=== PATIENT | male | born 1975 | race American Indian/Alaskan Native ===

== ENCOUNTER 2019-08-21 18:24 | Emergency (ER) | payer MEDICAID ==
--- NOTE | 2019-08-21 19:53 | EDM.PDOC ---
<ChristaMichaela M - Last Filed: 08/21/19 21:59> ED HPI GENERAL MEDICAL PROBLEM - General Chief Complaint: General Stated Complaint: FEVER,CHILLS,BODY ACHES Time Seen by Provider: 08/21/19 19:06 Source of Information: Reports: Patient, Provider, RN, RN Notes Reviewed History Limitations: Reports: No Limitations - History of Present Illness INITIAL COMMENTS - FREE TEXT/NARRATIVE: 43 year old male arrived ER from [facility] with c/o fatigue, weakness, chills, night sweats, elevated temp, poor intake of food, but good intake of liquid. No n/v. Bowels regular. No s/s of dysuria, discharge, frequency, burning, or starting a stream. Tick bit to right dorsal foot 24 hours ago. Tic bite area scant with healing scab. No redness, erythema, pruitis, rash, or discoloration at old tic bite site. C/O BL flank pain that radiated to abdomen on a few occasions yesterday. History of remote IV drug use. Last IV drug use 07-15-19. Pt states used clean needles every time. Prior to treatment, pt was homeless at [facility] near [facility]. No immediate distress noted. Pt is speaking in full sentences. Onset: Gradual Onset Date: 08/20/19 Duration: Day(s): Location: Reports: Generalized Lower Back Pain Score (Numeric/FACES): 3 - Related Data Allergies Allergy/AdvReac Type Severity Reaction Status Date / Time No Known Allergies Allergy Verified 08/21/19 18:44 Home Meds: Home Meds Erenumab-Aooe [Aimovig Autoinjector] 70 mg SQ Q30D 08/21/19 [History] Omeprazole 20 mg PO DAILY 08/21/19 [History] Past Medical History Musculoskeletal History: Reports: Fracture Neurological History: Reports: Migraines Psychiatric History: Reports: Addiction, Depression - Past Surgical History Musculoskeletal Surgical History: Reports: Other (See Below) Other Musculoskeletal Surgeries/Procedures:: collar bone right, left foot ORIF Social & Family History - Tobacco Use Smoking Status *Q: Current Every Day Smoker Years of Tobacco use: 23 Packs/Tins Daily: 0.2 - Caffeine Use Caffeine Use: Reports: Coffee - Recreational Drug Use Recreational Drug Use: Yes Drug Use in Last 12 Months: Yes Recreational Drug Type: Reports: Methamphetamine Recreational Drug Use Frequency: Weekly - Living Situation & Occupation Social History Comment: [facility] ED ROS GENERAL - Review of Systems Review Of Systems: See Below Constitutional: Reports: Fever, Chills, Malaise, Weakness, Night Sweats, Decreased Appetite HEENT: Reports: No Symptoms Respiratory: Reports: No Symptoms Cardiovascular: Reports: No Symptoms Endocrine: Reports: Fatigue GI/Abdominal: Reports: Decreased Appetite : Reports: Flank Pain (BL with radiation to abd on a few occasions yesterday) Musculoskeletal: Reports: No Symptoms Skin: Reports: Other (Tic bite from 08-20-19 dorsal ankle/foot. ) Neurological: Reports: Headache (Chronic. Shots for migranes. ) Psychiatric: Reports: No Symptoms Hematologic/Lymphatic: Reports: No Symptoms Immunologic: Reports: No Symptoms ED EXAM, GENERAL - Physical Exam Exam: See Below Exam Limited By: No Limitations General Appearance: Alert, WD/WN, No Apparent Distress Eye Exam: Bilateral Eye: Normal Inspection, PERRL Ears: Normal External Exam, Hearing Grossly Normal Ear Exam: Bilateral Ear: Auricle Normal Nose: Normal Inspection, Normal Mucosa, No Blood Throat/Mouth: Normal Inspection, Normal Lips, Normal Teeth, Normal Gums, Normal Voice, No Airway Compromise Head: Normocephalic Neck: Normal Inspection, Supple, Non-Tender, Full Range of Motion Respiratory/Chest: No Respiratory Distress, Lungs Clear, Normal Breath Sounds, No Accessory Muscle Use, Chest Non-Tender Cardiovascular: Normal Peripheral Pulses, Regular Rate, Rhythm, No Edema, No Gallop, No JVD, No Murmur, No Rub Peripheral Pulses: 2+: Radial (L), Radial (R), Posterior Tibial (L), Posterior Tibial (R), Dorsalis Pedis (L), Dorsalis Pedis (R) GI/Abdominal: Normal Bowel Sounds, Soft, Non-Tender, No Distention (Male) Exam: Deferred Rectal (Males) Exam: Deferred Back Exam: Normal Inspection, Other (BL flank pain previously noted) Extremities: Normal Inspection, Normal Range of Motion, Non-Tender, No Pedal Edema, Normal Capillary Refill Neurological: Alert, Oriented, CN II-XII Intact, Normal Cognition, Normal Gait, Normal Reflexes, No Motor/Sensory Deficits Psychiatric: Normal Affect, Normal Mood Skin Exam: Warm, Dry, Intact, Normal Color, No Rash, Other ([place] [address] dorsal foot/ankle. Healed with scant scab. ) Lymphatic: No Adenopathy Course - Re-Assessments/Exams Free Text/Narrative Re-Assessment/Exam: 08/21/19 19:44 Exam complete Labs ordered UA negative Waiting for lab results 08/21/19 20:10 CBC WNL 08/21/19 20:20 Strep negative. CMP negative. Waiting for procal and lactic then will call Dr Krishnamurthy 08/21/19 20:23 Lactic 1.0 08/21/19 20:33 All labs reviewed and discussed with pt. Dr Krishnamurthy called and pt will be monitored at [facility]. Dr Krishnamurthy aware etiology may be from "new" migraine shot pt received. Dr Krishnamurthy will notate in pt chart. Will d/c back to [facility]. 08/21/19 20:43 Now COVID test for d/c back to [facility] 08/21/19 21:59 Covid negative. [facility] called for ride. 08/21/19 22:00 Pt request Tylenol. Orders given pending pickler helper time more than hour. Departure - Departure Time of Disposition: 22:01 Disposition: Home, Self-Care 01 Condition: Good Clinical Impression: Fever Qualifiers: Fever type: unspecified Qualified Code(s): R50.9 - Fever, unspecified - Discharge Information *PRESCRIPTION DRUG MONITORING PROGRAM REVIEWED*: Not Applicable *COPY OF PRESCRIPTION DRUG MONITORING REPORT IN PATIENT JACQUELINE: Not Applicable Instructions: Fever, Adult, [id number] Referrals: PCP,None [Primary Care Provider] - Forms: ED Department Discharge Sepsis Event Note (ED) - Evaluation Sepsis Screening Result: Possible Sepsis Risk - Assessment/Plan Assessment:: Fever of unknown origin. Continue to monitor until further Lyme testing is resulted. COVID 19 testing was negative. Get plenty of rest and stay hydrated. Take Tylenol as prescribed from [facility]. <Duane Bermeo - Last Filed: 08/21/19 22:31> Course - Vital Signs Last Recorded V/S: Last Vital Signs Temp 98.2 F 08/21/19 20:21 Pulse 95 08/21/19 18:55 Resp 16 08/21/19 18:55 BP 133/80 08/21/19 18:55 Pulse Ox 95 08/21/19 18:55 I personally performed or re-performed the physical examination and medical decision making. I have verified all student documentation or findings, including history, physical exam and/or medical decision making. - Orders/Labs/Meds Orders: Active Orders 24 hr Category Date Time Status CULTURE STREP A CONFIRMATION [RM] Stat Lab 08/21/19 19:35 Results HUMAN GRANULOCYTIC PARDEEP-HGE Stat Lab 08/21/19 19:40 Received LYME, TOTAL AB TEST/REFLEX Stat Lab 08/21/19 19:40 Received STREP SCRN A RAPID W CULT CONF [RM] Stat Lab 08/21/19 19:35 Results Labs: Laboratory Tests 08/21/19 08/21/19 08/21/19 Range/Units 19:09 19:23 19:40 WBC 8.8 (4.5-11.0) K/uL RBC 4.90 (4.30-5.90) M/uL Hgb 13.5 (12.0-15.0) g/dL Hct 41.6 (40.0-54.0) % MCV 85 (80-98) fL MCH 28 (27-31) pg MCHC 33 (32-36) % Plt Count 278 (150-400) K/uL Neut % (Auto) 76 H (36-66) % Lymph % (Auto) 15 L (24-44) % [place] % (Auto) 8 H (2-6) % Eos % (Auto) 0 L (2-4) % Baso % (Auto) 0 (0-1) % Sodium 138 L (140-148) mmol/L Potassium 3.8 (3.6-5.2) mmol/L Chloride 102 (100-108) mmol/L Carbon Dioxide 25 (21-32) mmol/L Anion Gap 14.8 H (5.0-14.0) mmol/L BUN 11 (7-18) mg/dL Creatinine 1.1 (0.8-1.3) mg/dL Est Cr Clr Drug Dosing 95.04 mL/min Estimated GFR (MDRD) > 60 (>60) Glucose 107 H (74-106) mg/dL Lactic Acid (0.4-2.0) mmol/L Calcium 8.6 (8.5-10.1) mg/dL Total Bilirubin 0.5 (0.2-1.0) mg/dL AST 36 (15-37) U/L ALT 43 (12-78) U/L Alkaline Phosphatase 89 (46-116) U/L Total Protein 8.2 (6.4-8.2) g/dL Albumin 3.8 (3.4-5.0) g/dL Globulin 4.4 H (2.3-3.5) g/dL Albumin/Globulin Ratio 0.9 L (1.2-2.2) Procalcitonin ng/mL Urine Color Yellow (YELLOW) Urine Appearance Clear (CLEAR) Urine pH 7.5 (5.0-8.0) Ur Specific [place] 1.020 (1.008-1.030) Urine Protein Negative (NEGATIVE) mg/dL Urine Glucose (UA) Negative (NEGATIVE) mg/dL Urine Ketones Negative (NEGATIVE) mg/dL Urine Occult Blood Trace-lysed H (NEGATIVE) Urine Nitrite Negative (NEGATIVE) Urine Bilirubin Negative (NEGATIVE) Urine Urobilinogen 0.2 (0.2-1.0) EU/dL Ur Leukocyte Esterase Negative (NEGATIVE) Urine RBC 0-5 (0-5) Urine WBC Not seen (0-5) Ur Epithelial Cells Rare Amorphous Sediment Not seen Urine Bacteria Not seen Urine Mucus Not seen SARS Virus RNA (PCR) (NEGATIVE) 08/21/19 08/21/19 08/21/19 Range/Units 19:40 19:44 20:41 WBC (4.5-11.0) K/uL RBC (4.30-5.90) M/uL Hgb (12.0-15.0) g/dL Hct (40.0-54.0) % MCV (80-98) fL MCH (27-31) pg MCHC (32-36) % Plt Count (150-400) K/uL Neut % (Auto) (36-66) % Lymph % (Auto) (24-44) % [place] % (Auto) (2-6) % Eos % (Auto) (2-4) % Baso % (Auto) (0-1) % Sodium (140-148) mmol/L Potassium (3.6-5.2) mmol/L Chloride (100-108) mmol/L Carbon Dioxide (21-32) mmol/L Anion Gap (5.0-14.0) mmol/L BUN (7-18) mg/dL Creatinine (0.8-1.3) mg/dL Est Cr Clr Drug Dosing mL/min Estimated GFR (MDRD) (>60) Glucose (74-106) mg/dL Lactic Acid 1.0 (0.4-2.0) mmol/L Calcium (8.5-10.1) mg/dL Total Bilirubin (0.2-1.0) mg/dL AST (15-37) U/L ALT (12-78) U/L Alkaline Phosphatase (46-116) U/L Total Protein (6.4-8.2) g/dL Albumin (3.4-5.0) g/dL Globulin (2.3-3.5) g/dL Albumin/Globulin Ratio (1.2-2.2) Procalcitonin 0.30 ng/mL Urine Color (YELLOW) Urine Appearance (CLEAR) Urine pH (5.0-8.0) Ur Specific [place] (1.008-1.030) Urine Protein (NEGATIVE) mg/dL Urine Glucose (UA) (NEGATIVE) mg/dL Urine Ketones (NEGATIVE) mg/dL Urine Occult Blood (NEGATIVE) Urine Nitrite (NEGATIVE) Urine Bilirubin (NEGATIVE) Urine Urobilinogen (0.2-1.0) EU/dL Ur Leukocyte Esterase (NEGATIVE) Urine RBC (0-5) Urine WBC (0-5) Ur Epithelial Cells Amorphous Sediment Urine Bacteria Urine Mucus SARS Virus RNA (PCR) Negative (NEGATIVE) Meds: Medications Discontinued Medications Generic Name Dose Route Start Last Admin Trade Name Freq PRN Reason Stop Dose Admin Acetaminophen 650 mg 08/21/19 21:59 08/21/19 22:12 Tylenol PO 08/21/19 22:00 650 mg NOW ONE Administration Sepsis Event Note (ED) - Focused Exam Vital Signs: Vital Signs Temp Pulse Resp BP Pulse Ox 08/21/19 20:21 98.2 F 08/21/19 18:55 98.7 F 95 16 133/80 95 08/21/19 18:37 98.7 F 95 16 133/80 95
[2019-08-21] MEDS ORDERED: Acetaminophen 325 MG Tab PO ONE (21:59)
== END 2019-08-21 23:34 | disposition home or self-care (01) ==
LOC: JP.ED 18:24
DX: R50.9 Fever, unspecified (principal); F17.210 Nicotine dependence, cigarettes, uncomplicated
CPT/HCPCS: 36415; 80053; 81001; 83605; 84145; 85025; 86666; 87081; 87635; 87880; 99284; A9270; U0002

== ENCOUNTER 2019-08-23 17:16 | Emergency (ER) | payer MEDICAID ==
[2019-08-23] MEDS ORDERED: Ketorolac 60 MG/2 ML SDV IM ONE (18:34)
--- NOTE | 2019-08-23 18:34 | EDM.PDOC ---
ED HPI GENERAL MEDICAL PROBLEM - General Chief Complaint: General Stated Complaint: MEDICAL VIA NORTH Time Seen by Provider: 08/23/19 18:28 Source of Information: Reports: Patient History Limitations: Reports: No Limitations - History of Present Illness INITIAL COMMENTS - FREE TEXT/NARRATIVE: Patient presents describing continued headache over the last several days along with some nausea and vomiting. He was seen here earlier in the week and no specific findings were noted. His COVID-19 test was negative at that time. He had lab work drawn somewhere earlier today. He came by ambulance again from [place] describing a completely global headache. He was given omeprazole and 400 mg of ibuprofen at 1600 hrs. but has been vomiting. He is not a good historian. He is restless and changes position frequently from lying to sitting. Onset: Gradual Duration: Day(s): (3) Location: Reports: Head, Generalized Quality: Reports: Ache Severity: Moderate Improves with: Reports: None Worsens with: Reports: Movement Associated Symptoms: Reports: Headaches, Malaise, Nausea/Vomiting Headache Pain Score (Numeric/FACES): 9 - Related Data Allergies Allergy/AdvReac Type Severity Reaction Status Date / Time No Known Allergies Allergy Verified 08/21/19 18:44 Home Meds: Home Meds Erenumab-Aooe [Aimovig Autoinjector] 70 mg SQ Q30D 08/21/19 [History] Omeprazole 20 mg PO DAILY 08/21/19 [History] Past Medical History Musculoskeletal History: Reports: Fracture Neurological History: Reports: Migraines Psychiatric History: Reports: Addiction, Depression - Past Surgical History Musculoskeletal Surgical History: Reports: Other (See Below) Other Musculoskeletal Surgeries/Procedures:: collar bone right, left foot ORIF Social & Family History - Tobacco Use Smoking Status *Q: Current Every Day Smoker Years of Tobacco use: 20 Packs/Tins Daily: 1 - Caffeine Use Caffeine Use: Reports: Coffee - Recreational Drug Use Recreational Drug Use: Yes Drug Use in Last 12 Months: Yes Recreational Drug Type: Reports: Methamphetamine Recreational Drug Use Frequency: Weekly ED ROS GENERAL - Review of Systems Review Of Systems: Comprehensive ROS is negative, except as noted in HPI. ED EXAM, GENERAL - Physical Exam Exam: See Below Exam Limited By: No Limitations General Appearance: Moderate Distress Eye Exam: Bilateral Eye: Normal Inspection, PERRL Respiratory/Chest: Lungs Clear, Respiratory Distress Cardiovascular: Regular Rate, Rhythm, Tachycardia GI/Abdominal: Soft, Non-Tender Psychiatric: Anxious Course - Vital Signs Last Recorded V/S: Last Vital Signs Temp 37.2 C 08/23/19 20:38 Pulse 92 08/23/19 20:38 Resp 14 08/23/19 20:38 BP 134/72 08/23/19 20:38 Pulse Ox 98 08/23/19 20:38 - Orders/Labs/Meds Meds: Medications Discontinued Medications Generic Name Dose Route Start Last Admin Trade Name Nimo PRN Reason Stop Dose Admin Diphenhydramine HCl 25 mg 08/23/19 18:35 Benadryl IM 08/23/19 18:36 ONETIME ONE Diphenhydramine HCl 25 mg 08/23/19 18:37 08/23/19 19:10 Benadryl IVPUSH 08/23/19 18:38 25 mg ONETIME ONE Administration Prochlorperazine Edisylate 10 52 mls @ 150 mls/hr 08/23/19 18:38 08/23/19 19:13 mg/ Sodium Chloride IV 08/23/19 18:58 150 mls/hr ONETIME ONE Administration Sodium Chloride 1,000 mls @ 999 mls/hr 08/23/19 18:40 08/23/19 19:04 Normal Saline IV 08/23/19 19:40 999 mls/hr .BOLUS ONE Administration Ketorolac Tromethamine 60 mg 08/23/19 18:34 Toradol IM 08/23/19 18:35 ONETIME ONE Ketorolac Tromethamine 30 mg 08/23/19 18:38 08/23/19 19:05 Toradol IVPUSH 08/23/19 18:39 30 mg ONETIME ONE Administration Prochlorperazine Edisylate 10 mg 08/23/19 18:36 Compazine IM 08/23/19 18:37 ONETIME ONE - Re-Assessments/Exams Free Text/Narrative Re-Assessment/Exam: 08/24/19 06:07 The patient received Toradol, Benadryl, Compazine as IV doses along with 1 L of normal saline. I returned later and headache pain was gone, he was resting comfortably and nausea was no longer a factor. I reviewed other recent notes which point to a viral syndrome. He was returned to [place] to take regular doses of ibuprofen 800 mg over the next several days. Departure - Departure Time of Disposition: 20:35 Disposition: DC/Tfer to Other 70 Condition: Good Clinical Impression: Viral syndrome Headache Qualifiers: Headache type: unspecified Headache chronicity pattern: acute headache Intractability: not intractable Qualified Code(s): R51 - Headache - Discharge Information Instructions: Viral Illness, Adult Referrals: PCP,None [Primary Care Provider] - Forms: ED Department Discharge Additional Instructions: Take ibuprofen 800 mg 3 times a day regularly for the next 5 days. Drink adequate fluids. Symptoms should gradually improve over the next several days. Sepsis Event Note (ED) - Evaluation Sepsis Screening Result: Possible Sepsis Risk - Focused Exam Vital Signs: Vital Signs Temp Pulse Resp BP Pulse Ox 08/23/19 20:38 37.2 C 92 14 134/72 98
[2019-08-23] MEDS ORDERED: diphenhydrAMINE 50 MG/ML SDV IM ONE (18:35)
[2019-08-23] MEDS ORDERED: Prochlorperazine 10 MG/2 ML SDV IM ONE (18:36)
[2019-08-23] MEDS ORDERED: diphenhydrAMINE 50 MG/ML SDV IVPUSH ONE (18:37)
[2019-08-23] MEDS ORDERED: Prochlorperazine 10 MG in Sodium Chloride 0.9% 50 ML IV ONE (18:38)
[2019-08-23] MEDS ORDERED: Ketorolac 30 MG/ML SDV IVPUSH ONE (18:38)
[2019-08-23] MEDS ORDERED: Sodium Chloride 0.9% 1,000 ML IV ONE (18:40)
== END 2019-08-23 20:44 | disposition other institution (70) ==
LOC: JP.ED 17:16
DX: B34.9 Viral infection, unspecified (principal); R00.0 Tachycardia, unspecified; F17.210 Nicotine dependence, cigarettes, uncomplicated; Z79.899 Other long term (current) drug therapy
CPT/HCPCS: 96365; 96375; 99284; J0780; J1200; J1885; J7030; J7050